=== PATIENT | male | born 1960 | race Caucasian/White ===

== ENCOUNTER 2025-03-23 06:51 | Emergency (ER) | payer BC, SELFPAY ==
[2025-03-23 06:53] VITALS: BP 150/110
--- NOTE | 2025-03-23 08:17 | ED.GENMED ---
History of Present Illness
<DEVEN Valencia - Last Filed: 03/23/25 12:46>
General
Chief Complaint: Musculo-Skeletal Complaint
Source: patient and spouse
Exam Limitations: none
Time Seen by Provider: 03/23/25 07:55
History of Present Illness
History of Present Illness:
64 y/o male with a PMH of paraneoplastic cerebellar degeneration, maria t cell carcinoma, HTN, hypercholestrolemia presenting to the ED c/o gradual left neck and left sided chest pain. Pt stated neck pain started 3 days ago, was intermittent about a
2/10. Believes it is associated with a glucose monitor that was placed on left tricep which caused him to change his sleeping position but denies any trauma, fall and inciting incident. Typically sleeps on the left side, now has to sleep on right
side or on back. However the pain now radiates to the left side of the chest, left elbow and left scapula. Pt states last night the pain got much worse, 8/10 and is now sharp and constant. States he tried taking tylenol with little to no
improvement. Pain is exacerbated by neck flexion and turning neck to the right, improved by sitting up in neutral seated position. Pt concerned he was having an AL due to a recently high calcium score, no personal cardiac hx but has a family hx of
AL. Pt is generally weak, uses wheelchair and has chronic neck and back pain that he goes to physical therapy for due to his clinical condition but reports this being different. Pain is not reproducible with palpation. Pt denies any palpitations,
SOB, numbness/tingling in UE & LE, denies loss of strength, abdominal pain, N/V/D.
Past History
<DEVEN Valencia - Last Filed: 03/23/25 12:46>
Past History
ED Past Medical History: CAD, HTN and Hypercholesterolemia
Review of Systems
<DEVEN Valencia - Last Filed: 03/23/25 12:46>
Review of Systems
Constitutional: Reports sleep disturbance ( due to sleeping position)
EENT: Reports other (neck pain)
Respiratory: Reports no symptoms
Cardiac: Reports chest pain (left sided )
ABD/GI: Reports no symptoms
Musculoskeletal: Reports joint pain (left shoulder and elbow) and neck pain (left sided)
Skin: Reports no symptoms
Neurological: Reports dizzy (diagnosed with BPV 1 week ago, undergoing vestibular therapy)
Phy Exam
<Stefani Smith [facility] - Last Filed: 03/23/25 12:46>
General Physical Exam
General Presentation: well appearing and no apparent distress
General age: appears stated age
General Skin: warm and dry
General Habitus: normal
General Mental: alert
General Hydration: appears well hydrated
ENT Exam
ENT Exam: neck supple and normocephalic
Eye Exam
Eye Exam: PERRL and conjunctiva normal
Cardiovascular Exam
Cardiovascular Exam: regular rate/rhythm, no gallop, no murmur and normal peripheral pulses
Pulmonary Exam
Pulmonary Exam: lungs clear, no respiratory distress and no cough
Gastrointestinal Exam
Gastrointestinal Exam: normal bowel sounds, non tender, soft, no pulsatile mass and non distended
Palpation: generalized: No tenderness
Musculoskeletal Exam
Musculoskeletal Exam: full ROM, neck pain and neuro vasc intact
Skin Exam
Skin Exam: normal color and warm/dry
Course
<Stefani Smith [facility] - Last Filed: 03/23/25 12:46>
Orders/Labs/Results
Orders:
Orders
03/23/25 07:00
Electrocardiogram (*1) Urgent
Reason for Study: Other
Other Reason for Exam: neck pain
03/23/25 07:01
EKG- Treatment ONCE
03/23/25 09:36
CT Chest/abd/pelvis Angio W/wo Urgent
Comment:
Reason For Exam: chest pain, radiating to back
IV Insert/Care/Rem.- Treatment PRN
03/23/25 10:26
Complete Blood Count/With Diff Urgent
Comprehensive Metabolic Panel Urgent
Lipase Urgent
Troponin I Urgent
Abnormal Lab Results
03/23/25
10:26
MCH 31.2 H pg
(27.0-31.0)
Glucose 102 H mg/dl
(70-99)
03/23/25 10:26
03/23/25 10:26
Vital Signs
Initial and Last Documented VS:
Initial Vital Signs
Temp Pulse Resp BP Pulse Ox
98.6 F 108 22 150/110 98
03/23/25 06:53 03/23/25 06:53 03/23/25 06:53 03/23/25 06:53 03/23/25 06:53
Last Documented Vital Signs
Temp Pulse Resp BP Pulse Ox
98.6 F 93 16 119/90 94
03/23/25 06:53 03/23/25 11:15 03/23/25 11:15 03/23/25 11:00 03/23/25 11:15
<Dawson Hess, DO - Last Filed: 03/23/25 13:07>
Orders/Labs/Results
Orders:
Orders
03/23/25 07:00
Electrocardiogram (*1) Urgent
Reason for Study: Other
Other Reason for Exam: neck pain
03/23/25 07:01
EKG- Treatment ONCE
03/23/25 09:36
CT Chest/abd/pelvis Angio W/wo Urgent
Comment:
Reason For Exam: chest pain, radiating to back
IV Insert/Care/Rem.- Treatment PRN
03/23/25 10:26
Complete Blood Count/With Diff Urgent
Comprehensive Metabolic Panel Urgent
Lipase Urgent
Troponin I Urgent
Abnormal Lab Results
03/23/25
10:26
MCH 31.2 H pg
(27.0-31.0)
Glucose 102 H mg/dl
(70-99)
03/23/25 10:26
03/23/25 10:26
Vital Signs
Initial and Last Documented VS:
Initial Vital Signs
Temp Pulse Resp BP Pulse Ox
98.6 F 108 22 150/110 98
03/23/25 06:53 03/23/25 06:53 03/23/25 06:53 03/23/25 06:53 03/23/25 06:53
Last Documented Vital Signs
Temp Pulse Resp BP Pulse Ox
98.6 F 93 16 119/90 94
03/23/25 06:53 03/23/25 11:15 03/23/25 11:15 03/23/25 11:00 03/23/25 11:15
<Dawson Hess DO - Last Filed: 03/23/25 13:07>
MDM/Problems Addressed
Differential Diagnosis Includes:
Cervical radiculopathy, aortic dissection, ACS.
MDM/Problems Addressed:
64-year-old male with left-sided neck, chest and arm pain, likely radiculopathy. Doubt ACS, PE or dissection. Stable for discharge. Will treat with gabapentin.
<DEVEN Valencia - Last Filed: 03/23/25 12:46>
*Critical Care Note
Total Time (30-74mins, 75-104mins- exclusive of procedures): Not Applicable
<Dawson Hess DO - Last Filed: 03/23/25 13:07>
*Radiology
Radiology exam reviewed: radiology read reviewed (CT chest abdomen pelvis no signs of aortic dissection or PE)
*Pulse Oximetry
Patient hypoxic: no
*EKG
Interpreted by ED Provider?: Yes
EKG Intrepretation Date: 03/23/25
EKG Intrepretation Time: 07:06
Interpretation: abnormal
Comparison EKG: no comparison EKG present
Heart Rate: 96
Rate: normal
Rhythm: sinus
[place]: normal axis
Interval: normal interval
QRS Pattern: other (LPFB)
Ischemia: no ischemia
*Process Environmental Technician Interpretation
Rate: normal
Interpretation: normal
Heart Rate: 95
Rhythm: sinus
<Dawson Hess DO - Last Filed: 03/23/25 13:07>
Patient Management
Social determinants of health affecting care: Living situation and Strong social support
Escalation/DeEscalation of care consider admission/obs:
admit not indicated
ED Attending Note
<DEVEN Valencia - Last Filed: 03/23/25 12:46>
-
Portions of this chart may have been created with voice recognition software.� Occasional wrong word or��sound alike� substitutions may have occurred due to the inherent limitations of voice recognition software.
<Dawson Hess, - Last Filed: 03/23/25 13:07>
ED Attending Note
Patient seen and examined by attending physician: Yes
I performed a history and physical exam of patient and discussed management with resident, I reviewed resident's note and agree with documented findings and plan of care.: Yes
Discharge Plan
Departure
Patient Disposition: Home (Routine Discharge)
Date of Disposition: 03/23/25
Time of Disposition: 13:00
Patient with high blood pressure during this ER visit?: No
Condition: Good
Discharge Problem:
Cervical radiculopathy
Instructions: Radiculopathy of the neck and back (including sciatica)
Prescriptions:
New
gabapentin 300 mg capsule
300 mg PO TID PRN (Reason: neck pain) Qty: 30 0RF
Referrals:
UNKNOWN - PT DOES,NOT KNOW [Family Provider] -
Interventions
Interventions:
*Risk Screen - Suicide Last Done: 03/23/25 06:53
*General Assessment Last Done: 03/23/25 09:06
*Neglect/Abuse Screening Last Done: 03/23/25 06:53
*ED- Fall Risk Assessment Last Done: 03/23/25 09:12
*ED COVID-19 Vaccine History Last Done: 03/23/25 09:12
ED-Musculoskeletal Assessment Last Done: 03/23/25 09:00
Discharge Date and Time
Print Language: [email or web address]
[2025-03-23 09:04] VITALS: BP 147/99
[2025-03-23 09:05] VITALS: BMI 31.3
[2025-03-23 10:00] VITALS: BP 118/86
[2025-03-23 10:45] LABS: % Basophils 0.8 % (0-2); % Eosinophils 3.7 % (0-6); % Immature Granulocytes 0.3 % (0-0.5); % Lymphocytes 33.7 % (20.5-51.1); % Monocytes 6.5 % (1.7-9.3); Absolute Basophils 0.1 10^3/uL (0-0.2); Absolute Eosinophils 0.3 10^3/uL (0-0.7); Absolute Lymphocytes 2.6 10^3/uL (1.2-3.4); Absolute Monocytes 0.5 10^3/uL (0.1-0.6); Absolute Neutrophils 4.2 10^3/uL (1.4-6.5); Hematocrit 45.4 % (39.0-52.0); Hemoglobin 15.9 g/dL (13.0-18.0); Mean Corpuscular Hgb 31.2 pg (27.0-31.0); Mean Corpuscular Volume 89.2 fL (80.0-94.0); Mean Platelet Volume 9.1 fL (7.4-10.4); Nucleated Red Blood Cells % 0 % (-); Platelet Count 297 10^3/uL (130-400); Red Blood Cell Count 5.09 10^6/uL (4.70-6.10); Red Cell Dist. Width 12.6 % (11.5-14.5); White Blood Cell Count 7.6 10^3/uL (4.8-10.8)
[2025-03-23 11:00] VITALS: BP 119/90
[2025-03-23 11:05] LABS: Troponin I < 0.012 ng/ml
[2025-03-23 11:13] LABS: ALT (SGPT) 46 U/L (0-50); AST (SGOT) 28 U/L (17-59); Albumin 4.4 g/dl (3.5-5.0); Alkaline Phosphatase 67 U/L (38-126); Blood Urea Nitrogen 18 mg/dl (9-20); Calcium 10.1 mg/dl (8.4-10.2); Carbon Dioxide 25 mmol/L (22-30); Chloride 107 mmol/L (98-107); Estimated Creatinine Clearance 97 ml/min; Glucose 102 mg/dl (70-99); Lipase 127 U/L (23-300); Potassium 4.5 mmol/L (3.5-5.1); Sodium 143 mmol/L (135-145); Total Bilirubin 0.6 mg/dl (0.2-1.3); Total Protein 7.1 g/dl (6.3-8.2); eGFR > 60.00
[2025-03-23 13:21] VITALS: BP 133/92
== END 2025-03-23 13:30 | disposition home or self-care (01) ==
LOC: EMR 06:51
PROVIDERS: EMERGENCY PHYSICIAN Emergency Medicine
DX: M54.12 Radiculopathy, cervical region (principal); R07.89 Other chest pain; G31.9 Degenerative disease of nervous system, unspecified; I10 Essential (primary) hypertension; I25.10 Atherosclerotic heart disease of native coronary artery without angina pectoris; E78.00 Pure hypercholesterolemia, unspecified; Z82.49 Family history of ischemic heart disease and other diseases of the circulatory system; Z85.821 Personal history of Merkel cell carcinoma
CPT/HCPCS: 99284; 71275; 74174; 80053; 83690; 84484; 85025; 93005; Q9967